=== PATIENT | female | born 1970 | race Caucasian/White ===

== ENCOUNTER → 2017-01-21 | Outpatient (CLI) | payer OTHER ==
--- NOTE | 2017-01-21 23:08 | RADIOLOGY REPORT PS360 ---
EXAM: LUMBAR SPINE 5 VIEWS HISTORY: SCIATICA OF RIGHT SIDE, LOW BACK PAIN ORDERING PHYSICIAN: Montserrat ROSALES PATIENT AGE: 46 years COMPARISON: None FINDINGS: Normal alignment. There is mild degenerative disc disease at L2-L3 L4-L5 and L5-S1. Mild facet arthritic changes are present at L4-5 and L5-S1. No lytic or blastic change. The SI joints have an unremarkable appearance. IMPRESSION: Lumbar spondylosis, no acute finding
== END ==
LOC: RAD 18:17
DX: M54.31 Sciatica, right side (principal); M54.17 Radiculopathy, lumbosacral region